=== PATIENT | female | born 1985 | race Caucasian/White ===

== ENCOUNTER → 2018-01-19 | Outpatient (CLI) | payer OTHER ==
[2018-01-19 13:46] LABS: BASOPHILS # (AUTO) 0.04 x10^3/uL (0-0.1); BASOPHILS % (AUTO) 1 % (0-1); EOSINOPHILS # (AUTO) 0.15 x10^3/uL (0-0.4); EOSINOPHILS % (AUTO) 2 % (1-7); LYMPHOCYTES # (AUTO) 2.43 x10^3/uL (1-3.4); LYMPHOCYTES % (AUTO) 35 % (22-44); MD NO; MEAN CORPUSCULAR HGB CONC 33.6 g/dL (32.4-35.8); MEAN CORPUSCULAR VOLUME 89.4 fL (80-100); MEAN PLATELET VOLUME 8.8 fL (7.4-10.4); MONOCYTES # (AUTO) 0.67 x10^3/uL (0.2-0.8); MONOCYTES % (AUTO) 10 % (2-9); NEUTROPHILS # (AUTO) 3.65 x10^3/uL (1.8-6.8); NEUTROPHILS % (AUTO) 53 % (42-75); PLATELET COUNT 276 x10^3/uL (130-400); RED CELL DISTRIBUTION WIDTH 13.2 % (9.6-15.2)
[2018-01-19 13:52] LABS: CALCIUM 8.5 mg/dL (8.5-10.1); CHLORIDE 105 mmol/L (98-107)
[2018-01-19 14:19] LABS: ALANINE AMINOTRANSFERASE 27 U/L (12-78); ALBUMIN 3.8 g/dL (3.4-5.0); ALKALINE PHOSPHATASE 66 U/L (45-117); ANION GAP 7 mmol/L (5-15); BILIRUBIN,TOTAL 0.6 mg/dL (0.2-1.0); CREATININE 0.81 mg/dL (0.55-1.02); FOLATE LEVEL 17.1 ng/mL (3.1-17.5); T4 (THYROXINE) 9.6 mcg/dL (4.8-13.9); TOTAL PROTEIN 7.6 g/dL (6.4-8.2)
== END | disposition home or self-care (01) ==
LOC: LAB 13:27
PROVIDERS: ATTEND Nurse Practitioner Family
DX: F41.9 Anxiety disorder, unspecified (principal); R53.83 Other fatigue; G47.00 Insomnia, unspecified; L30.9 Dermatitis, unspecified
CPT/HCPCS: 36415; 80053; 82306; 82607; 82746; 84436; 84443; 84481; 85025

== ENCOUNTER 2018-05-29 10:35 | Emergency (ER) | payer OTHER ==
[~2018-05-29] VITALS: Ht 165.1 cm; Wt 91.8 kg
[2018-05-29] MEDS ORDERED: ONDANSETRON ODT 4 MG ONE ×2 (11:23→13:24)
[2018-05-29] MEDS ORDERED: DIAZEPAM 5 MG TABLET ONE (11:23)
[2018-05-29] MEDS ORDERED: HYDROmorphone 2 MG/ML, 1ML ONE (11:23)
[2018-05-29] MEDS ORDERED: DIAZEPAM 5 MG TABLET PO ONE (11:30)
[2018-05-29] MEDS ORDERED: ONDANSETRON ODT 4 MG PO ONE ×2 (11:30→13:30)
[2018-05-29] MEDS ORDERED: HYDROmorphone 1 MG/ML, 1ML IM ONE (11:30)
[2018-05-29] MEDS ORDERED: KETOROLAC 30 MG/1 ML IM ONE (12:00)
[2018-05-29] MEDS ORDERED: KETOROLAC 30 MG/1 ML ONE (12:09)
[2018-05-29 13:46] VITALS: BP 106/78
== END 2018-05-29 13:48 | disposition home or self-care (01) ==
LOC: ED 13:15
DX: S39.012A Strain of muscle, fascia and tendon of lower back, initial encounter (principal); X58.XXXA Exposure to other specified factors, initial encounter; Y93.89 Activity, other specified; Y92.89 Other specified places as the place of occurrence of the external cause; Y99.8 Other external cause status
CPT/HCPCS: 72110; 96372; 99284; J1170; J1885; Q0162

== ENCOUNTER → 2018-06-01 | Outpatient (CLI) | payer OTHER | END | disposition home or self-care (01) | LOC: RAD 16:35 | PROVIDERS: ATTEND Chiropractor | DX: M51.27 Other intervertebral disc displacement, lumbosacral region (principal); Q05.7 Lumbar spina bifida without hydrocephalus | CPT/HCPCS: 72148 ==

== ENCOUNTER → 2018-12-03 | Outpatient (CLI) | payer OTHER | END | disposition home or self-care (01) | LOC: CFH 07:12 | PROVIDERS: ATTEND Nurse Practitioner Family | DX: M51.26 Other intervertebral disc displacement, lumbar region (principal); M51.24 Other intervertebral disc displacement, thoracic region | CPT/HCPCS: 72148 ==

== ENCOUNTER → 2019-08-11 | Outpatient (CLI) | payer OTHER | END | disposition home or self-care (01) | LOC: CFH 08:35 | PROVIDERS: ATTEND Emergency Medicine | DX: R92.2 Inconclusive mammogram (principal) | CPT/HCPCS: 76642; 77066; G0279 ==

== ENCOUNTER → 2019-09-16 | Outpatient (CLI) | payer OTHER ==
[~2019-09-16] MED LIST: ALPRazolam 1MG TAB ONE
== END | disposition home or self-care (01) ==
LOC: RAD 14:28
PROVIDERS: ATTEND Registered Nurse Registered Nurse First Assistant
DX: M51.27 Other intervertebral disc displacement, lumbosacral region (principal); M51.26 Other intervertebral disc displacement, lumbar region
CPT/HCPCS: 72110; 72148

== ENCOUNTER → 2020-05-03 | Outpatient (CLI) | payer OTHER ==
[2020-05-03 08:15] LABS: BASOPHILS # (AUTO) 0.04 x10^3/uL (0-0.1); BASOPHILS % (AUTO) 1 % (0-1); EOSINOPHILS # (AUTO) 0.46 x10^3/uL (0-0.4); EOSINOPHILS % (AUTO) 7 % (1-7); LYMPHOCYTES # (AUTO) 1.51 x10^3/uL (1-3.4); LYMPHOCYTES % (AUTO) 23 % (22-44); MD NO; MEAN CORPUSCULAR HEMOGLOBIN 29.6 pg (27.0-34.8); MEAN CORPUSCULAR HGB CONC 32.9 g/dL (32.4-35.8); MEAN CORPUSCULAR VOLUME 89.8 fL (80-100); MEAN PLATELET VOLUME 8.7 fL (7.4-10.4); MONOCYTES # (AUTO) 0.54 x10^3/uL (0.2-0.8); MONOCYTES % (AUTO) 8 % (2-9); NEUTROPHILS % (AUTO) 61 % (42-75); PLATELET COUNT 225 x10^3/uL (130-400); RED BLOOD COUNT 5.06 x10^6/uL (3.82-5.3); RED CELL DISTRIBUTION WIDTH 14.9 % (9.6-15.2)
[2020-05-03 08:27] LABS: ALANINE AMINOTRANSFERASE 20 U/L (12-78); ALBUMIN 3.7 g/dL (3.4-5.0); ANION GAP 5 mmol/L (5-15); CALCIUM 8.3 mg/dL (8.5-10.1); CHLORIDE 107 mmol/L (98-107); CREATININE 0.79 mg/dL (0.55-1.02)
[2020-05-03 08:38] LABS: ALKALINE PHOSPHATASE 56 U/L (45-117); BILIRUBIN,TOTAL 0.6 mg/dL (0.2-1.0); TOTAL PROTEIN 7.3 g/dL (6.4-8.2)
[2020-05-03 14:39] LABS: CHOLESTEROL, TOTAL 194 mg/dL (140-239)
[2020-05-03 14:40] LABS: CHOL/HDL RATIO 3.2; HDL CHOL % 31 % (28-40); HDL CHOLESTEROL (DIRECT) 61 mg/dL (40-60); LDL CHOLESTEROL,CALCULATED 123 mg/dL (54-169); TRIGLYCERIDES 48 mg/dL (50-200); VLDL CHOLESTEROL 10 mg/dL (0-25)
== END | disposition home or self-care (01) ==
LOC: LAB 07:57
PROVIDERS: ATTEND Nurse Practitioner Family
DX: Z00.01 Encounter for general adult medical examination with abnormal findings (principal); M51.26 Other intervertebral disc displacement, lumbar region; F33.0 Major depressive disorder, recurrent, mild; F41.9 Anxiety disorder, unspecified; G44.201 Tension-type headache, unspecified, intractable; G47.00 Insomnia, unspecified; J45.20 Mild intermittent asthma, uncomplicated; R68.82 Decreased libido
CPT/HCPCS: 36415; 80053; 80061; 82306; 83036; 84443; 85025

== ENCOUNTER → 2020-05-11 | Outpatient (CLI) | payer OTHER ==
[2020-05-11 16:28] LABS: BASOPHILS # (AUTO) 0.04 x10^3/uL (0-0.1); BASOPHILS % (AUTO) 1 % (0-1); EOSINOPHILS # (AUTO) 0.74 x10^3/uL (0-0.4); EOSINOPHILS % (AUTO) 11 % (1-7); LYMPHOCYTES # (AUTO) 1.59 x10^3/uL (1-3.4); LYMPHOCYTES % (AUTO) 24 % (22-44); MD NO; MEAN CORPUSCULAR HEMOGLOBIN 29.1 pg (27.0-34.8); MEAN CORPUSCULAR HGB CONC 32.2 g/dL (32.4-35.8); MEAN CORPUSCULAR VOLUME 90.5 fL (80-100); MEAN PLATELET VOLUME 9.1 fL (7.4-10.4); MONOCYTES # (AUTO) 0.58 x10^3/uL (0.2-0.8); MONOCYTES % (AUTO) 9 % (2-9); NEUTROPHILS # (AUTO) 3.64 x10^3/uL (1.8-6.8); NEUTROPHILS % (AUTO) 55 % (42-75); PLATELET COUNT 248 x10^3/uL (130-400); RED BLOOD COUNT 4.79 x10^6/uL (3.82-5.3); RED CELL DISTRIBUTION WIDTH 14.6 % (9.6-15.2)
[2020-05-11 16:38] LABS: ALBUMIN 3.8 g/dL (3.4-5.0); ANION GAP 5 mmol/L (5-15); CALCIUM 8.5 mg/dL (8.5-10.1); CHLORIDE 110 mmol/L (98-107); CREATININE 0.72 mg/dL (0.55-1.02)
[2020-05-11 16:45] LABS: ALANINE AMINOTRANSFERASE 20 U/L (12-78); ALKALINE PHOSPHATASE 58 U/L (45-117); BILIRUBIN,TOTAL 0.3 mg/dL (0.2-1.0); TOTAL PROTEIN 7.3 g/dL (6.4-8.2)
== END | disposition home or self-care (01) ==
LOC: CFH 13:39
PROVIDERS: ATTEND Family Medicine
DX: R11.10 Vomiting, unspecified (principal); R10.13 Epigastric pain
CPT/HCPCS: 36415; 74176; 80053; 83690; 85025

== ENCOUNTER 2020-08-31 10:22 | Outpatient (CLI) | payer OTHER ==
[2020-08-31 10:42] LABS: BASOPHILS % (AUTO) 1 % (0-1); EOSINOPHILS % (AUTO) 4 % (1-7); LYMPHOCYTES % (AUTO) 30 % (22-44); MEAN CORPUSCULAR HEMOGLOBIN 30.2 pg (27.0-34.8); MEAN CORPUSCULAR HGB CONC 33.9 g/dL (32.4-35.8); MEAN PLATELET VOLUME 8.7 fL (7.4-10.4); MONOCYTES % (AUTO) 9 % (2-9); NEUTROPHILS % (AUTO) 57 % (42-75); PLATELET COUNT 248 x10^3/uL (130-400); RED BLOOD COUNT 4.71 x10^6/uL (3.82-5.3); RED CELL DISTRIBUTION WIDTH 13.3 % (9.6-15.2)
[2020-08-31 10:43] LABS: MD NO
[2020-08-31 10:48] LABS: ALANINE AMINOTRANSFERASE 31 U/L (12-78); ALBUMIN 4.1 g/dL (3.4-5.0); ANION GAP 5 mmol/L (5-15); CHLORIDE 109 mmol/L (98-107); CREATININE 0.77 mg/dL (0.55-1.02)
[2020-08-31 10:58] LABS: ALKALINE PHOSPHATASE 54 U/L (45-117); BILIRUBIN,TOTAL 0.4 mg/dL (0.2-1.0); T4 (THYROXINE) 9.4 mcg/dL (4.8-13.9); TOTAL PROTEIN 7.5 g/dL (6.4-8.2)
== END 2020-08-31 23:59 | disposition home or self-care (01) ==
LOC: LAB 10:22
PROVIDERS: ATTEND Nurse Practitioner Family
DX: R03.0 Elevated blood-pressure reading, without diagnosis of hypertension (principal); F41.9 Anxiety disorder, unspecified; G47.00 Insomnia, unspecified; R00.0 Tachycardia, unspecified; R07.89 Other chest pain
CPT/HCPCS: 36415; 80053; 84436; 84443; 84481; 85025

== ENCOUNTER 2021-04-16 17:42 | Emergency (ER) | payer OTHER ==
[~2021-04-16] VITALS: Ht 162.6 cm; Wt 83.5 kg
--- NOTE | 2021-04-16 17:49 | NUR ---
speech correction consultant: EKG done in triage
[2021-04-16] MEDS ORDERED: PLEASE ENTER HEIGHT AND WEIGHT MC SCH (18:00)
[2021-04-16] MEDS ORDERED: ALBUTEROL SULFATE 2.5 MG/3 ML NPPB ONE (18:00)
[2021-04-16] MEDS ORDERED: ALBUTEROL SULFATE 2.5 MG/3 ML ONE (18:01)
[2021-04-16] MEDS ORDERED: MORPHINE SULFATE 4 MG/ML, 1ML ONE (18:37)
--- NOTE | 2021-04-16 18:49 | NUR ---
REPORT TO RENUKA GURROLA.
[2021-04-16 18:53] LABS: BASOPHILS % (AUTO) 1 % (0-1); EOSINOPHILS % (AUTO) 1 % (1-7); LYMPHOCYTES % (AUTO) 16 % (22-44); MEAN CORPUSCULAR HEMOGLOBIN 30.8 pg (27.0-34.8); MEAN CORPUSCULAR HGB CONC 34.3 g/dL (32.4-35.8); MEAN PLATELET VOLUME 9.3 fL (7.4-10.4); MONOCYTES % (AUTO) 11 % (2-9); NEUTROPHILS % (AUTO) 71 % (42-75); PLATELET COUNT 207 x10^3/uL (130-400); RED BLOOD COUNT 4.82 x10^6/uL (3.82-5.3); RED CELL DISTRIBUTION WIDTH 13.6 % (9.6-15.2)
[2021-04-16] MEDS ORDERED: SODIUM CHLORIDE 0.9% 1,000ML IVBOLUS ONE (19:00)
[2021-04-16] MEDS ORDERED: MORPHINE SULFATE 4 MG/ML, 1ML IVPush ONE (19:00)
[2021-04-16 19:19] LABS: ANION GAP 11 mmol/L (5-15); CALCIUM 8.6 mg/dL (8.5-10.1); CHLORIDE 109 mmol/L (98-107); CREATININE 0.95 mg/dL (0.55-1.02)
--- NOTE | 2021-04-16 19:21 | NUR ---
RECIEVED REPORT FROM GALILEO TIERNEY. PT IN MILD DISTRESS. PT CONTINOUSLY HAS A DRY COUGH CAUSING PAIN. NOTIFIED MD. SEE EMAR FOR NEW ORDERS.
[2021-04-16] MEDS ORDERED: PROMETHAZINE/COD. 10MG/6.25MG/5 ML ORAL SOL PO ONE (19:30)
--- NOTE | 2021-04-16 19:39 | NUR ---
PT REPORTS FEELING BETTER. PT NO LONGER COUGHING AT REST.
[2021-04-16] MEDS ORDERED: ALBUTEROL/IPRATROPIUM 2.5MG/0.5MG, 3 ML ONE (21:16)
[2021-04-16] MEDS ORDERED: OXYcodone/APAP 5/325MG TABLET ONE (21:24)
[2021-04-16] MEDS ORDERED: OXYcodone/APAP 5/325MG TABLET PO ONE (21:30)
[2021-04-16] MEDS ORDERED: ALBUTEROL/IPRATROPIUM 2.5MG/0.5MG, 3 ML NEB ONE (21:30)
[2021-04-16] MEDS ORDERED: LIDOCAINE 4% TOPICAL SOLUTION 50 ML TP ONE (21:30)
--- NOTE | 2021-04-16 21:30 | NUR ---
SPOKE WITH RESPIRATORY AND THEY ARE COMING TO ADMINISTRER BREATHING TREATMENT
[2021-04-16] MEDS ORDERED: LIDOCAINE-MPF 1%, 2ML ONE ×2 (21:32→21:34)
--- NOTE | 2021-04-16 22:15 | NUR ---
PT REPORTS IMPROVEMENT OF SYMPTOMS AFTER LAST BREATHING TREATMENT
[2021-04-16 22:16] VITALS: BP 115/82
== END 2021-04-16 22:18 | disposition home or self-care (01) ==
LOC: ED 18:12
DX: J98.01 Acute bronchospasm (principal); R00.0 Tachycardia, unspecified
CPT/HCPCS: 36415; 71045; 80048; 85025; 85379; 93005; 94640; 96374; 99285; J2270; J7030; J7512; J7613

== ENCOUNTER 2021-05-02 13:55 | Outpatient (CLI) | payer OTHER | END 2021-05-02 23:59 | disposition home or self-care (01) | LOC: LAB 13:55 | PROVIDERS: ATTEND Family Medicine | DX: R00.2 Palpitations (principal) | CPT/HCPCS: 36415; 84443 ==